=== PATIENT | male | born 1945 | race Caucasian/White ===

== ENCOUNTER 2023-12-29 01:17 | Day surgery (SDC) | payer MEDICARE, SELFPAY ==
[2023-12-26 11:29] VITALS: BMI 27.1
--- NOTE | 2023-12-26 11:50 | PC.NURSE ---
Spoke with _WIFE-MARIAH_ regarding medication ELIQUIS_. Pt. verbalizes understanding that the last dose of ELIQUIS is to be taken on 12/26/2023_ and the Endoscopist will instruct them when to restart after the procedure.
[2023-12-29 08:23] VITALS: BP 135/82; PULSE 56; RESP 18; TEMP 36.2; O2SAT 100
[2023-12-29] MEDS: LACTATED RINGERS 1,000 ML 150 ML IV CONT (08:50)
--- NOTE | 2023-12-29 08:53 | WPDANESEPPF ---
Anes - Initial Pre Proc Eval Procedure: Operation Date: 12/29/23 09:30 Proposed Procedures p Colonoscopy - Raciel Morillo MD Date/Time: 12/29/23 08:53 Surgeon: Raciel Morillo MD Pre Op Diagnosis: Anemia, Colon polyp Patient Data Age: 78 Gender: M Height: 1.83 m Weight: 93.4 kg Last Vital Signs Temp 36.2 C L 12/29/23 08:23 Pulse 56 L 12/29/23 08:23 Resp 18 12/29/23 08:23 BP 135/82 12/29/23 08:23 Pulse Ox 100 12/29/23 08:23 O2 Del Method Room Air 12/29/23 08:23 Allergies Allergy/AdvReac Type Severity Reaction Status Date / Time onion Allergy Intermediate Gastrointestinal Verified 12/29/23 08:29 Upset Home Medications Medication Instructions Recorded Confirmed Type atorvastatin 20 mg tablet 20 mg PO QHS #30 tabs 11/04/21 12/29/23 Rx cyanocobalamin (vitamin B-12) 1,000 mcg PO QAM #30 tabs 11/04/21 12/29/23 Rx 1,000 mcg tablet (Vitamin B-12) finasteride 5 mg tablet (Proscar) 5 mg PO QAM #0 tabs 11/04/21 12/29/23 Rx tamsulosin 0.4 mg capsule 0.4 mg PO HS #0 caps 11/04/21 12/29/23 Rx apixaban 5 mg tablet (Eliquis) 5 mg PO BID 11/27/23 12/29/23 History amlodipine 5 mg-valsartan 160 mg 1 tablet PO DAILY 12/26/23 12/29/23 History tablet multivitamin with minerals-folic 1 tablet PO DAILY 12/26/23 12/29/23 History acid 400 mcg-lycopene 370 mcg tablet (One-A-Day Men's 50 Plus) Patient hx anesthesia problems: none Family hx anesthesia problems: none Results Review: All pre-operative results and documents have been reviewed as part of the pre-operative evaluation. [facility] Past Medical History Medical History Afib CAD (coronary artery disease) HLD (hyperlipidemia) HTN (hypertension) long-term current use of anticoagulant Family History Family History Father Family history of gout Family history of diabetes mellitus in first degree relative, Onset Age: 83 Patient's father is Mother Family history of Alzheimer's disease Social History Social History Smoking status: Former smoker Tobacco type: smokeless tobacco Smokeless tobacco user: chewing tobacco Smoking end date: 03/17/87 Additional smoking assessment comments: CHEWS TOBACCO - QUIT CIG. YEARS AGO Alcohol intake: current Substance use: never Substance use type: does not use Living arrangements: with family Spiritual care concerns: No Anes - Eval Final PreProcedure Day of Procedure 12/29/23 08:53 Patient weight: overweight Heart: regular rate and rhythm Lungs: clear to auscultation Airway: Mallampati scale class II Neurological: alert and oriented Last oral intake: >/= 8 hours ASA classification: III Emergent: no Anesthetic plan: proceed Anesthesia type and monitoring: general GIVS and standard monitoring Results Review: All pre-operative results and documents have been reviewed as part of the pre-operative evaluation. Informed Consent: The patient's anesthetic plan and its attendant risks and benefits were discussed with the patient/family/POA. Questions were solicited and answers provided to the satisfaction of the patient/family/POA.
--- NOTE | 2023-12-29 10:04 | P.HP_ITS ---
H&P: HPI History of Present Illness Date/Time: 12/29/23 10:04 Chief Complaint: Screening colonoscopy. Narrative: This patient's last colonoscopy was over 10 years ago. He is referred by his PCP for screening colonoscopy. 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 YEARS AGO Alcohol intake: current Substance use: never Substance use type: does not use Living arrangements: with family Spiritual care concerns: No Meds Home Medications and Allergies Home Medications Medication Instructions Recorded Confirmed Type atorvastatin 20 mg tablet 20 mg PO QHS #30 tabs 11/04/21 12/29/23 Rx cyanocobalamin (vitamin B-12) 1,000 mcg PO QAM #30 tabs 11/04/21 12/29/23 Rx 1,000 mcg tablet (Vitamin B-12) finasteride 5 mg tablet (Proscar) 5 mg PO QAM #0 tabs 11/04/21 12/29/23 Rx tamsulosin 0.4 mg capsule 0.4 mg PO HS #0 caps 11/04/21 12/29/23 Rx apixaban 5 mg tablet (Eliquis) 5 mg PO BID 11/27/23 12/29/23 History amlodipine 5 mg-valsartan 160 mg 1 tablet PO DAILY 12/26/23 12/29/23 History tablet multivitamin with minerals-folic 1 tablet PO DAILY 12/26/23 12/29/23 History acid 400 mcg-lycopene 370 mcg tablet (One-A-Day Men's 50 Plus) Allergies Allergy/AdvReac Type Severity Reaction Status Date / Time onion Allergy Intermediate Gastrointestinal Verified 12/29/23 08:29 Upset Vital Signs Vital Signs - 24 hr 12/29/23 08:23 Temperature 97.1 F L Pulse Rate 56 L Respiratory Rate 18 Blood Pressure 135/82 Pulse Oximetry 100 Oxygen Delivery Room Air Assessment and Plan Assessment and plan (1) Screening for malignant neoplasm of colon: Code(s): Z12.11 - Encounter for screening for malignant neoplasm of colon Status: Acute Plan Patient deemed a good candidate for colonoscopy, will proceed.
[2023-12-29] MEDS: SIMETHICONE ORAL SUSPENSION 20 MG/0.3 ML 30 ML BOTTLE 0.6 ML IRRIGATION (10:19)
[2023-12-29 10:45] VITALS: BP 109/67; PULSE 61; RESP 17; O2SAT 100
[2023-12-29 10:55] VITALS: BP 112/64; PULSE 58; RESP 19; O2SAT 100
[2023-12-29 11:05] VITALS: BP 114/60; PULSE 62; RESP 21; O2SAT 100
--- NOTE | 2023-12-29 11:16 | SUR.PHASEII ---
Pt. to resume Eliquis in five days per bedside instructions.
== END 2023-12-29 11:33 | disposition home or self-care (01) ==
PROVIDERS: PCP Emergency Medicine; Referring Provider Emergency Medicine; Visit Provider Internal Medicine Gastroenterology
PROC: 0DJD8ZZ Inspection of Lower Intestinal Tract, Via Natural or Artificial Opening Endoscopic (ICD-10-PCS; CPT 45378; principal; 2023-12-29 09:30)
DX: Z12.11 Encounter for screening for malignant neoplasm of colon (principal); D12.5 Benign neoplasm of sigmoid colon; D12.4 Benign neoplasm of descending colon; D12.0 Benign neoplasm of cecum; D64.9 Anemia, unspecified; E78.5 Hyperlipidemia, unspecified; I10 Essential (primary) hypertension; I25.10 Atherosclerotic heart disease of native coronary artery without angina pectoris; I48.91 Unspecified atrial fibrillation; F17.220 Nicotine dependence, chewing tobacco, uncomplicated; Z79.01 Long term (current) use of anticoagulants
CPT/HCPCS: 45390; 88305; J2003; J2704; J7120